=== PATIENT | female | born 1980 | race Caucasian/White ===

== ENCOUNTER 2017-10-18 04:27 | Emergency (ER) | payer SELFPAY ==
[2017-10-18 04:34] VITALS: BP 140/85; BMI 35.0
[2017-10-18] MEDS ORDERED: DUONEB 0.5 MG/3 MG NEB ONE (05:04)
[2017-10-18] MEDS ORDERED: ROCEPHIN VIAL 1 GM IM ONE (05:04)
[2017-10-18] MEDS ORDERED: BENADRYL CAP 50 MG PO ONE (05:05)
[2017-10-18] MEDS ORDERED: TORADOL 60 MG VIAL IM ONE (05:05)
[2017-10-18] MEDS ORDERED: DUONEB 0.5 MG/3 MG ONE (05:09)
--- NOTE | 2017-10-18 05:09 | DR.GENAD ---
HPI - PCP Primary Care Physician: NFD - Complaint/Symptoms Chief Complaint Doctors Comments: Patient is complaining of left ear pain for the past two hours. States the pain woke her from her sleep. She has a cold,, cough, wheezing, SOB, nasal congestion and fever. States she has been having different sickness for the past three months with cough, nasal congestion. States she went to the clinic and they gave her a prescription for Amoxicillin and an inhaler but she could not afford the inhaler. States she smokes 1/2 pack cigarettes daily and drinks alcohol occasionally. She has been having nasal congestion but she is not taking any medicines. Chief Complaint:: LEFT EAR; HEADACHE Self Treatment fo Chief Complaint: NO TREATMENT - Nurses notes reviewed Nurses Notes Review: Yes - Source History Provided: Patient - Mode of Arrival Mode of Arrival: Ambulatory - Timing Onset of Chief Complaint: 10/17/17 Came on: Gradually - Duration Duration: Intermittent How lon Duration: Weeks - Location Location: left ear pain - Severity Severity: Moderate - Modifying Factors Worsens:: nothing Improves:: nothing PMH - PMH Past Medical History: Yes Past Medical History: Asthma, COPD Past Surgical History: No Surgical History: - Family History History of Family Medical Conditions: No - Social History Alcohol Use: None Do you use any recreational Drugs:: No Lives With: Alone Lives Where: Home - infectious screening In the last 2 months have you had wt loss of >10#?: NO Have you had fever, night sweats or hemotysis?: No Have you traveled outside the country in the last 6 months?: No Isolation: Standard ROS - Review of Systems Constitutional: No Symptoms Reported. negative: See HPI, Chills, Diaphoresis, Fever, Malaise, Weakness, Irritable, Fatigue, Loss of Appetite, Other Eyes: No Symptoms Reported ENTM: No Symptoms Reported, Ear Pain, Nose Discharge, Nose Congestion Respiratoy: No Symptoms Reported, Non-Productive Cough, Short of Breath, Wheezing Cardiovascular: No Symptoms Reported. negative: See HPI, Chest Pain, Edema, Palpitations, Syncope, Cyanosis, Skin Mottling, Other Gastrointestinal/Abdominal: No Symptoms Reported. negative: See HPI, Abdominal Pain, Constipation, Diarrhea, Nausea, Vomiting, Food Intolerance, Other Genitourinary: No Symptoms Reported. negative: See HPI, Discharge, Dysuria, Frequency, Hematuria, Pain, Bleeding, Other Neurological: No Symptoms Reported Musculoskeletal: No Symptoms Reported Integumentary: No Symptoms Reported Hematologic/Lymphatic: No Symptoms Reported Endocrine: No Symptoms Reported Psychiatric: No Symptoms Reported PE - Vital Signs Vitals: Temperature 98.6 F Pulse Rate 90 Respiratory Rate 26 Blood Pressure 140/85 O2 Sat by Pulse Oximetry 94 - General Limitations: No Limitations General Appearance: Alert, In Distress (mild) - Head Head Exam: Normal Inspection, Atraumatic, Normocephalic - Eyes Eye exam: Normal Appearance, PERRL, EOMI. negative: Scleral Icterus, Conjunctival Injection, Nystagmus, Miosis, Mydrasis, Periorbital Swelling, Periorbital Tenderness, Other - ENT ENT Exam: Normal Exam, Normal Oropharynx, Normal External Ear Exam, Mucous Membranes Moist. negative: TM's Normal Bilaterally (left auditory cannal with purulent secretion occluding tympanic membrane) External Ear Exam: Normal External Inspection TM/Canal Exam: Bilateral Normal Nose Exam: Normal Nose Exam Mouth Exam: Normal Inspection Throat Exam: Normal Inspection - Neck Neck Exam: Normal Inspection, Full ROM, Trachea Midline - Chest Chest Inspection: Normal Inspection, Symmetric Chest Wall Rise - Respiratory Respiratory Exam: Normal Lung Sounds Bilat Respiratory Exam: Bilateral Wheezing, Bilateral Decreased Breath Sounds - Cardiovascular Cardiovascular Exam: Regular Rate, Normal Rhythm, Normal Heart Sounds - Abdominal Exam Abdominal Exam: Normal Inspection, Normal Bowel Sounds, Soft Abdominal Tenderness: negative: RUQ, RLQ, LUQ, LLQ, Epigastrium, Suprapubic, Diffuse, Mild, Moderate, Severe, Other - Extremities Extremities Exam: Normal Inspection, Full ROM, Normal Capillary Refill. negative: Tenderness, Edema, Joint Swelling, Calf Tenderness, Other - Back Back Exam: Normal Inspection, Full ROM - Neurologic Neurological Exam: Alert, Oriented X3, CN II-XII Intact, Normal Gait, Reflexes Normal - Psychiatric Psychiatric Exam: Normal Affect, Normal Mood - Skin Skin Exam: Warm, Dry, Intact, Normal Color Course - Education/Counseling Education/Counseling: Patient Educated On: Treatment, Diagnosis, Needs for Follow Up ROR - Labs Reviewed Laboratory Results Reviewed?: Yes (all x-ray results reviewed and discussed with patient) - XRAY XRAY Interpreted by: Radiologist (CXR: No acute chest process) - Diagnosis Discharge Problem: Bronchospasm Bronchitis, acute Qualifiers: Bronchitis organism: unspecified organism Qualified Code(s): J20.9 - Acute bronchitis, unspecified Sinusitis, acute Qualifiers: Sinusitis location: maxillary - Discharge Plan Disposition: 01 HOME, SELF-CARE Condition: Stable Prescriptions: Albuterol Sulfate [Proair Hfa] 8.5 gm IH Q4-6H PRN #1 [id number] PRN Reason: Ciprofloxacin HCl [CIPRO 500 MG TAB *] 500 mg PO Q12H #20 tab Methylprednisolone Dosepak 4Mg [MEDROL DOSEPAK (4 mg tab x 21)] 1 karen PO ONCE # 1 karen Montelukast Sodium [Singulair Tab 10 mg] 10 mg PO HS #30 tab - Follow ups/Referrals Follow ups/Referrals: RINA,Braulio [Primary Care Provider] - 3 days AVANI SHANNON [STAFF PHYSICIAN] - 3 days - Instructions Instructions: Acute Bronchitis, Sinusitis, Adult, [id number], Bronchospasm, Adult
[2017-10-18] MEDS ORDERED: BENADRYL CAP/TAB 25 MG PO ONE (05:17)
[2017-10-18] MEDS ORDERED: ROCEPHIN VIAL 1 GM ONE (05:17)
[2017-10-18] MEDS ORDERED: TORADOL 60 MG VIAL ONE (05:17)
--- NOTE | 2017-10-18 05:45 | RAD ---
Chest PA and lateral Indication: Cough and wheezing. Findings: There is no pneumothorax, effusion or consolidation. Heart size is normal. Impression: No acute chest process. Reported By:
== END 2017-10-18 07:13 | disposition home or self-care (01) ==
LOC: ER 04:27
DX: J98.01 Acute bronchospasm (principal); J20.9 Acute bronchitis, unspecified; J01.80 Other acute sinusitis
CPT/HCPCS: 71046; 94640; 96372; 99282; J0696; J1885; J7620